=== PATIENT | female | born 1980 ===

== ENCOUNTER 2025-11-21 10:29 | Outpatient (AMB) | payer OTHER, SELFPAY ==
--- NOTE | 2025-11-21 10:33 | A.OFFPC_ITS ---
Vital Signs 11/21/25 10:37 Height 5 ft 4.02 in Weight 130 lb 6 oz BMI 22.4 BP 100/74 Blood Pressure Location Lt brachial Position Sitting Respiration 12 Pulse 73 Pulse Source Pulse Oximeter Temp 97.9 F Temp Source Oral Pulse Oximetry (%) 99 Oxygen Delivery Method Room Air Intake Visit Reasons: CPE Intake Note: New patient visit. Hasn't had a provider for 4 years. Catalog Library Assistant Required: No Allergies No Known Allergies Allergy (Verified 11/21/25 10:35) Medication List - Last Reconciled 11/21/25 by Naina Mariscal PA-C acetaminophen (Tylenol) PO eyoyqkb-fzvwtpknqupyy-yhyyufep (Excedrin Extra Strength) PO ibuprofen (Ibuprofen IB) PO Tobacco use date assessed: 11/21/25 Dental Screening Dental Screen Date: 11/21/25 Did you have a dental visit in the last 12 months?: Yes Did you have a dental problem in the last 6 months where you did not have access to dental care?: No Was dental information given to patient?: Patient has dentist HPI CPE HPI Details Patient is a 45-year-old female who presents today to [facility]. She is transferring from [place]. She has not been seen in many years. She has reports a significant past medical history of chronic cough and migraines. CV: Blood pressure today in the office is 100/74. Not on any antihypertensives. Recently had labs show elevated cholesterol. Neuro: has a hx of migraines and saw neurology. Seems better with cutting out certain foods and taking iron. Pulm: has had a chronic cough since 2019. States she was tested for asthma, gerd. GI: Had hpylori dx around 2019. She states she saw GI and found hpylori and gerd and took antibiotics. Breast: 08.26.25 felt a right breast lump and [place] [facility] [place] had a dx mammo and u/s and then had bx on 10/26/25. She was diagnosed with fibroadenoma. [place] [facility] [place] imaging in March 2026 and follow up with breast center Rn Lvn: Recently started having very heavy menses x 6 months. She states she has a regular period lasting 4-5 days. She states for 2-3 days it is very heavy and gallardo s to change a pad every 1-2 hours. She had labs that showed JOAQUIN and started taking supplements. She cannot see manager infusion until March 2026. Has not been seen in 5+ years. She is booked with Dr. Peralta. Colonoscopy: never had Family hx: Mother has htn, maternal uncles had MIs in 40s, siblings have hld. [facility] Social History Housing: House Patient Tobacco Use Status: Never used Tobacco e-Cigarette/Vaping Use: Never Used Second Hand Smoke Exposure: No service: No Current occupational status: employed Current occupation: treasury accountant Current occupational exposures/hazards: No Cognitive needs: No Hearing needs: No Vision needs: Yes (contacts/glasses) Questionnaire PHQ-9 Over the last 2 weeks, how often have you been bothered by any of the following problems? 1. Little interest or pleasure in doing things: not at all 2. Feeling down, depressed, or hopeless: not at all 3. Trouble falling or staying asleep, or sleeping too much: several days 4. Feeling tired or having little energy: several days 5. Poor appetite or overeating: not at all 6. Feeling bad about yourself - or that you are a failure or have let yourself or your family down: not at all 7. Trouble concentrating on things, such as reading the newspaper or watching television: not at all 8. Moving or speaking so slowly that other people could have noticed. Or the opposite - being so fidgety or restless that you have been moving around a lot more than usual: not at all 9. Thoughts that you would be better off or of hurting yourself in some way: not at all Total score: 2 Source: Developed by Drs. Samuel Looney, Georgie Bah, Geovani Soto and colleagues, with an educational promise from [employer]. Thrive Questionnaire I am a: Patient What is your living situation today?: I have a steady place to live Within the past 12 months, did the food you bought not last and you didn't have the money to get more?: I choose not to answer this question Within the past 12 months, did you worry whether your food would run out before you got money to buy more?: I choose not to answer this question Do you have trouble paying for medicines?: I choose not to answer this question Do you have trouble getting transportation to medical appointments?: No Do you have trouble paying your heating and electricity bill?: I choose not to answer this question Do you have trouble taking care of your child, family member or friend?: No Do you have trouble with day-to-day activities such as bathing, preparing meals, shopping, managing finances, etc.?: No Are you currently unemployed and looking for a job?: No Are you interested in more education?: No Please select the resources that you would like help with: None Currently or been in a relationship where the following occur: No concerns reported THRIVE Score: 0 AUDIT C Alcohol Use Questionnaire (AUDIT-C) 1. How often do you have a drink containing alcohol?: Never 3. How often do you have six or more drinks on one occasion?: Never Total Score: 0 TRISTAN-7 AMB Questionnaire TRISTAN-7 Date TRISTAN - 7 assessed: 11/21/25 Feeling nervous, anxious, or on edge: 0 = Not at all Not being able to stop or control worryin = Not at all Worrying too much about different things: 0 = Not at all Trouble relaxin = Not at all Being so restless that it is hard to sit still: 0 = Not at all Becoming easily annoyed or irritable: 0 = Not at all Feeling afraid as if something awful might happen: 0 = Not at all Total TRISTAN-7 score (0-4 normal; 5-9 mild; 10-14 moderate; 15-21 severe): 0 Source: Developed by Drs. Samuel Looney, Georgie Bah, Geovani Soto and colleagues, with an educational promise from [employer]. TRISTAN-7 Assessment Billing TRISTAN-7 Assessment Tool: TRISTAN-7 Assessment 11835 Physical exam (Primary Care) Vital Signs: Last Vital Signs Temp 97.9 F 11/21/25 10:37 Pulse 73 11/21/25 10:37 Resp 12 11/21/25 10:37 BP 100/74 11/21/25 10:37 Pulse Ox 99 11/21/25 10:37 Oxygen Delivery Method Room Air 11/21/25 10:37 BMI result Body Mass Index 22.4 Tobacco/Smoking Status: Tobacco use Status Tobacco use date assessed 11/21/25 11/21/25 10:40 Patient Tobacco Use Status Never used Tobacco 11/21/25 10:40 e-Cigarette/Vaping Use Never Used 11/21/25 10:40 PHQ-9: PHQ-9 Score PHQ-9: Total score 2 11/21/25 11:09 Currently or been in a relationship where the following occur: No concerns reported Const Orientation/consciousness: patient oriented x3 HENMT Ears: hearing grossly normal bilaterally and TM's normal bilaterally General nose exam: No nasal polyps present Face and sinus: Yes sinuses nontender Mouth: Normal oral and palatal mucosa present Eyes Pupils: Equal, round and reactive pupils present EOM: EOMs intact bilaterally Neck Neck: Yes full ROM and Yes no lymphadenopathy Thyroid: Thyroid normal Chest Chest palpation & inspection: normal inspection of the chest Resp Auscultation: clear to auscultation bilaterally Cardio Rate: regular rate Rhythm: regular rhythm Heart sounds: S1 normal heart sound present and S2 normal heart sound present Peripheral pulses: Peripheral pulses 2+ throughout GI Other: Soft, nontender Auscultation: normal bowel sounds Rectal Exam - Female: deferred General: Yes no CVA tenderness Back/Spine/Pelvis Other: Nontender Back: no CVA tenderness Skin General skin exam: no rashes or lesions noted Neuro General: patient oriented x3, gait normal, CN's II-XI intact bilaterally and deep tendon reflexes 2+ bilaterally Cranial nerves: Yes Equal, round and reactive pupils present Motor exam (neuro): 5/5 motor strength present throughout Sensory Exam: double simultaneous stimulation for sensation normal Coordination: twjcua-ow-oqrp test normal and Romberg test negative Extrem General: Yes normal to inspection and Yes full ROM Psych Affect: normal affect Attitude: cooperative Thought process: Normal thought process present Thought content: Normal thought content present Insight: Good insight present (Psych) Judgement: Good judgement present (Psych) Coding Level of Care Code New Pt Prev Care 40-64y(89479) Add On Preventative Visit Only Diagnoses Routine general medical examination at a health care facility Z00.00 Menorrhagia N92.0 Dyslipidemia E78.5 JOAQUIN (iron deficiency anemia) D50.9 Additional Codes TRISTAN-7 Assessment Billing - TRISTAN-7 Assessment Tool: TRISTAN-7 Assessment 16741 ([id number]) Assessment & Plan Assessment & Plan (1) Routine general medical examination at a health care facility: Code(s): Z00.00 - Encounter for general adult medical examination without abnormal findings Plan: Health maintenance reviewed Labs ordered Referral to GI for screening colonoscopy Has follow up for mammogram Scheduled with manager infusion in March. (2) Menorrhagia: Code(s): N92.0 - Excessive and frequent menstruation with regular cycle Category: Medical Plan: Pelvic ultrasound ordered. Has a appointment booked with manager infusion. Recently started on iron supplements a couple of months ago. (3) Dyslipidemia: Code(s): E78.5 - Hyperlipidemia, unspecified Category: Medical Plan: Does not wish to start a medication and prefers to try diet changes. Has been working on this since the fall. (4) JOAQUIN (iron deficiency anemia): Code(s): D50.9 - Iron deficiency anemia, unspecified Category: Medical Plan: As listed above. Labs ordered referral to GI as well. Orders: Orders 2 Complete Blood Count Auto Diff 11/21/25 D50. - Iron deficiency anemia, unspecified, E78.5 - Hyperlipidemia, unspecified, N92.0 - Excessive and frequent menstruation with regular cycle Ferritin 11/21/25 D50.9 - Iron deficiency anemia, unspecified, E78.5 - Hyperlipidemia, unspecified, N92.0 - Excessive and frequent menstruation with regular cycle UA CC w/rflx Micro + Cult 11/21/25 D50.9 - Iron deficiency anemia, unspecified, E78.5 - Hyperlipidemia, unspecified, N92.0 - Excessive and frequent menstruation with regular cycle, R30.0 - Dysuria Microalbumin, Random (w Creat) 11/21/25 D50.9 - Iron deficiency anemia, unspecified, E78.5 - Hyperlipidemia, unspecified, N92.0 - Excessive and frequent menstruation with regular cycle Comprehensive [place]. Panel Fast 11/21/25 D50.9 - Iron deficiency anemia, unspecified, E78.5 - Hyperlipidemia, unspecified, N92.0 - Excessive and frequent menstruation with regular cycle TSH reflex Free T4 11/21/25 D50.9 - Iron deficiency anemia, unspecified, E78.5 - Hyperlipidemia, unspecified, N92.0 - Excessive and frequent menstruation with regular cycle IRON PROFILE 11/21/25 D50.9 - Iron deficiency anemia, unspecified, E78.5 - Hyperlipidemia, unspecified, N92.0 - Excessive and frequent menstruation with regular cycle Lipid Panel 11/21/25 D50.9 - Iron deficiency anemia, unspecified, E78.5 - Hyperlipidemia, unspecified, N92.0 - Excessive and frequent menstruation with regular cycle US pelvic and transvaginal 11/21/25 D50.9 - Iron deficiency anemia, unspecified, N92.0 - Excessive and frequent menstruation with regular cycle Referrals Gastroenterology Referral Z12.11 - Encounter for screening for malignant neoplasm of colon
[2025-11-21 10:37] VITALS: BP 100/74; PULSE 73; RESP 12; TEMP 36.6; O2SAT 99; BMI 22.4
--- OUTSIDE RECORDS SUMMARY | 2025-11-21 11:43 | XMS_ITS ---
Author Name [facility] Organization [facility] Care Team Organization Name Specialty Phone Email Start Date End Da te [facility] Lorna Gutierrez [facility] 09/29/2022 4
== END 2025-11-21 11:29 | disposition home or self-care (01) ==
LOC: HO.HMCFM 10:30
PROVIDERS: PCP Physician Assistant; Visit Provider Physician Assistant
DX: Z00.00 Encounter for general adult medical examination without abnormal findings (principal); N92.0 Excessive and frequent menstruation with regular cycle; E78.5 Hyperlipidemia, unspecified; D50.9 Iron deficiency anemia, unspecified

== ENCOUNTER → 2025-11-21 10:29 | Outpatient (BNVA) | payer OTHER, SELFPAY | PROVIDERS: PCP Physician Assistant; Visit Provider Physician Assistant | DX: Z00.00 Encounter for general adult medical examination without abnormal findings (principal); N92.0 Excessive and frequent menstruation with regular cycle; E78.5 Hyperlipidemia, unspecified; D50.9 Iron deficiency anemia, unspecified; R30.0 Dysuria; Z13.31 Encounter for screening for depression; Z13.39 Encounter for screening examination for other mental health and behavioral disorders | CPT/HCPCS: 96127 ==